=== PATIENT | male | born 1935 ===

== ENCOUNTER 2017-02-19 13:35 | Inpatient (IN) | payer MEDICARE, OTHER ==
[2017-02-19 13:38] VITALS: BMI 20.9
--- NOTE | 2017-02-19 14:19 | ED PDOC ---
HPI: General Adult Time Seen by Provider: 02/19/17 14:03 Chief Complaint (Nursing): Abdominal Pain Chief Complaint (Provider): weakness History Per: Patient, Other (friend) History/Exam Limitations: other (poor historian) Current Symptoms Are (Timing): Still Present Additional History Per: Family (friend) Additional Complaint(s): 81yo male is brought in by friend for weakness, decreased urination and pain to right groin consistent with known hernia. States last saw his doctor 1 month ago but doesn't remember the name. This is his first visit to [facility] under this MR #. Denies fever, vomit, diarrhea. Friend states that she lives several doors down and often hears him moaning in pain. History limited due to poor historian. Past Medical History Reviewed: Historical Data, Nursing Documentation, Vital Signs, Unable To Obtain (poor historian) Vital Signs: Last Vital Signs Temp 98.8 F 02/24/17 22:50 Pulse 66 02/24/17 22:50 Resp 17 02/24/17 22:50 BP 146/72 02/24/17 22:50 Pulse Ox 96 02/24/17 22:50 - Medical History Other PMH: hernia - Family History Family History: States: Unknown Family Hx - Home Medications Home Medications: Ambulatory Orders Medication Instructions Recorded No Known Home Med 02/19/17 - Allergies Allergies/Adverse Reactions: Allergies Allergy/AdvReac Type Severity Reaction Status Date / Time No Known Allergies Allergy Verified 02/19/17 13:46 Review of Systems Review Of Systems: ROS cannot be obtained secondary to pt's inabilty to answer questions. (poor historian) Physical Exam - Reviewed Nursing Documentation Reviewed: Yes Vital Signs Reviewed: Yes - Physical Exam Appears: Positive for: Non-toxic (elderly appearing, with cachexia, temporal wasting), No Acute Distress Head Exam: Positive for: ATRAUMATIC, NORMAL INSPECTION, NORMOCEPHALIC Skin: Positive for: Warm, Dry Eye Exam: Positive for: EOMI, PERRL ENT: Positive for: Other (mildly dehydrated with poor dentition, dry mucous membrane) Cardiovascular/Chest: Positive for: Regular Rate, Rhythm Respiratory: Positive for: Normal Breath Sounds. Negative for: Rales, Rhonchi, Wheezing Gastrointestinal/Abdominal: Positive for: Soft, Other (several brenden surigcal scars to abdomen). Negative for: Tenderness Male Genital Exam: Positive for: other (inguinal hernia with mildly tender right groin) Extremity: Positive for: Other (No distal edema. +pulses) Neurologic/Psych: Positive for: Other (although confused, otherwise neurologically intact.) - Laboratory Results Result Diagrams: 02/20/17 07:25 02/20/17 07:25 - ECG O2 Sat by Pulse Oximetry: 98 (RA) Pulse Ox Interpretation: Normal Medical Decision Making Medical Decision Makin Workup for abdominal pain, dehydration, hernia. Initiate IV fluids, check CT abd /pel. labs reviewed. CT report reviewed, revealing R inguinal hernia and hydroureter. Admit to Dr James. Dr Infante aware, admitting team to consult urology. Antibiotics initiated after cultures obtained. Disposition - Clinical Impression Clinical Impression: Abdominal pain, UTI (urinary tract infection), Inguinal hernia - Patient ED Disposition Is Patient to be Admitted: Yes Counseled Patient/Family Regarding: Studies Performed, Diagnosis, Need For Followup - Disposition Disposition Time: 18:14 Condition: STABLE - Pt Status Changed To: Hospital Disposition Of: Inpatient - Admit Certification Admit to Inpatient:: After my assessment, the patient will require hospitalization for at least two midnights. This is because of the severity of symptoms shown, intensity of services needed, and/or the medical risk in this patient being treated as an outpatient. - POA Present On Arrival: Poor Glycemic Control Additional Comments - Additional Comments Additional Comments: Scribe Attestation: Documented by Tee Smart acting as a scribe for Carlin Vines DO. Provider Scribe Attestation: All medical record entries made by the Scribe were at my direction and personally dictated by me. I have reviewed the chart and agree that the record accurately reflects my personal performance of the history, physical exam, medical decision making, and the department course for this patient. I have also personally directed, reviewed, and agree with the discharge instructions and disposition.
[2017-02-19] MEDS ORDERED: Sodium Chloride 0.9% 1,000 ML IV STA (14:20)
[2017-02-19 14:34] LABS: BASO % 0.4 % (0.0-2.0); EOS # 0.1 K/uL (0.0-0.7); EOS % 0.7 % (0.0-4.0); HEMOGLOBIN 14.2 g/dL (12.0-18.0); LYMPH # 1.1 K/uL (1.0-4.3); LYMPH % 10.2 % (20.0-40.0); MEAN CELL VOLUME 91.5 fl (80.0-94.0); MEAN CORPUSCULAR HEMOGLOBIN 30.4 pg (27.0-31.0); MEAN CORPUSCULAR HGB CONC 33.3 g/dL (33.0-37.0); MEAN PLATELET VOLUME 8.8 fl (7.2-11.7); MONO # 0.7 K/uL (0.0-0.8); MONO % 6.8 % (0.0-10.0); NEUT # 8.6 K/uL (1.8-7.0); NEUT % 81.9 % (50.0-75.0); NRBC % 0.2 % (0.0-0.0); RBC 4.65 Mil/uL (4.40-5.90); RED CELL DISTRIBUTION WIDTH 14.3 % (11.5-14.5); WHITE BLOOD COUNT 10.5 K/uL (4.8-10.8)
[2017-02-19 14:44] LABS: ALBUMIN 3.1 g/dL (3.5-5.0); CALCIUM 8.5 mg/dL (8.4-10.2)
[2017-02-19 14:54] LABS: TROPONIN I 0.016 ng/mL (0.00-0.120)
[2017-02-19 14:57] LABS: ALB/GLOB RATIO 0.8 (1.0-2.1); INR 1.25 (0.92-1.08); PARTIAL THROMBOPLASTIN TIME 28.6 SECONDS (23.3-32.5)
[2017-02-19 16:46] LABS: SQUAMOUS EPITHIAL 3 /hpf (0-5); URINE BACTERIA OCC (<OCC); URINE BILIRUBIN NEGATIVE (NEGATIVE); URINE BLOOD SMALL (NEGATIVE); URINE CLARITY CLOUDY (Clear); URINE COLOR AMBER (YELLOW); URINE GLUCOSE (UA) NEG (Normal); URINE LEUKOCYTE ESTERASE LARGE Leu/uL (Negative); URINE NITRATE NEGATIVE (NEGATIVE); URINE PROTEIN 100 mg/dL (NEGATIVE); URINE UROBILINOGEN 0.2-1.0 mg/dL (0.2-1.0); WBC CLUMPS FEW /hpf
[2017-02-19 16:53] LABS: MAGNESIUM 2.6 MG/DL (1.6-2.3)
--- NOTE | 2017-02-19 17:51 | CT ---
PROCEDURE: CT Abdomen and Pelvis without intravenous contrast HISTORY: R inguinal pain, hernia COMPARISON: None. TECHNIQUE: Unenhanced study. Neither oral nor intravenous contrast administered. Sensitivity and specificity for acute inflammatory processes limited by the absence of oral and intravenous contrast. Radiation dose: Total exam DLP = 875.17 roland mGy-cm. This CT exam was performed using one or more of the following dose reduction techniques: Automated exposure control, adjustment of the mA and/or kV according to patient size, and/or use of iterative reconstruction technique. FINDINGS: LOWER THORAX: Unremarkable. LIVER: Unremarkable. No gross lesion or ductal dilatation. GALLBLADDER AND BILE DUCTS: Unremarkable. PANCREAS: Unremarkable. No gross lesion or ductal dilatation. SPLEEN: Unremarkable. ADRENALS: Unremarkable. No mass. KIDNEYS AND URETERS: Right kidney: Unremarkable. Left kidney: Dilatation of the left collecting system, the left ureter is dilated in its entirety. Left ureterocele identified. No evidence of obstructing calculi or renal masses. VASCULATURE: Unremarkable. No aortic aneurysm. BOWEL: Right inguinal hernia containing nondilated loops of small bowel. There is no evidence of more proximal obstruction or evidence of incarceration. Diverticulosis without an acute inflammatory component or other associated pathologic process. APPENDIX: No abnormalities to suggest acute appendicitis. No right lower quadrant inflammatory processes identified. PERITONEUM: Unremarkable. No free fluid. No free air. LYMPH NODES: Unremarkable. No enlarged lymph nodes. BLADDER: Diffuse bladder wall thickening. Multiple small bladder diverticula identified. No focal bladder wall abnormalities. REPRODUCTIVE: Prostatic enlargement, prostate measures 4.6 x 5.7 cm. BONES: No acute fracture. OTHER FINDINGS: None. IMPRESSION: 1. Small right inguinal hernia containing loops of small bowel without evidence of incarceration or proximal obstruction. 2. Bladder wall thickening, bladder diverticular a identified. In the proper clinical setting this bladder wall thickening can't be ADRIAN cystitis. Ultimately bladder outflow obstruction can produce bladder wall thickening. 3. Unilateral, left hydronephrosis, hydroureter without obstructing stone or other pathologic process.
[2017-02-19] MEDS ORDERED: cefTRIAXone (Rocephin) 1 gm Inj ONE (19:20)
[2017-02-19] MEDS ORDERED: Potassium Chloride 20 mEq ER Tab PO ONE ×2 (19:33→20:02)
--- NOTE | 2017-02-19 21:33 | CP.PCM.CON ---
History of Present Illness - History of Present Illness History of Present Illness: 81 y.o. male was brought to the hospital with complains of not being able to void and lower abdominal pain. Denies any nausea or vomiting, no fever but reported some chills. Passing flatus and reports diarrhea. Patient is a poor historian and most of the history was obtained from patient's daughter present at the bedside and ER physician. Patient underwent CT scan of the abdomen and pelvis and there was a finding of right inguinal hernia without signs of obstruction or incarceration. No other complains at present time. Review of Systems - Constitutional Constitutional: As Per HPI - EENT Eyes: Other (unremarkable) Ears: Other (unremarkable) Nose/Mouth/Throat: Other (unremarkable) - Cardiovascular Cardiovascular: Other (unremarkable) - Respiratory Respiratory: Other (unremarkable) - Gastrointestinal Gastrointestinal: As Per HPI - Genitourinary Genitourinary: As Per HPI - Musculoskeletal Musculoskeletal: Other (unremarkable) - Integumentary Integumentary: Other (unremarkable) - Neurological Neurological: Other (unremarkable) - Psychiatric Psychiatric: Other (unremarkable) - Endocrine Endocrine: Other (unremarkable) - Hematologic/Lymphatic Hematologic: Other (unremarkable) Past Patient History - Past Social History Smoking Status: Never Smoked - GENITOURINARY/GYNECOLOGICAL Hx Prostate Problems: Yes - PSYCHIATRIC Hx Substance Use: No - SURGICAL HISTORY Hx Surgeries: Yes Other/Comment: Surgery for gastric ulcer - ANESTHESIA Hx Anesthesia: Yes Meds Allergies/Adverse Reactions: Allergies Allergy/AdvReac Type Severity Reaction Status Date / Time No Known Allergies Allergy Verified 02/19/17 13:46 Physical Exam - Constitutional Appears: Well, Non-toxic, No Acute Distress - Head Exam Head Exam: ATRAUMATIC, NORMAL INSPECTION, NORMOCEPHALIC - ENT Exam ENT Exam: Mucous Membranes Dry - Neck Exam Neck exam: Positive for: Full Rom, Normal Inspection - Respiratory Exam Respiratory Exam: Clear to Auscultation Bilateral, NORMAL BREATHING PATTERN - Cardiovascular Exam Cardiovascular Exam: REGULAR RHYTHM, +S1, +S2 - GI/Abdominal Exam GI & Abdominal Exam: Normal Bowel Sounds, Soft Additional comments: NT, ND, no rebound, no guarding, reducible right inguinal hernia - Rectal Exam Rectal Exam: Deferred - Exam Exam: Testicular Tenderness - Extremities Exam Extremities exam: Positive for: full ROM, normal inspection - Back Exam Back exam: NORMAL INSPECTION - Neurological Exam Neurological exam: Alert - Psychiatric Exam Psychiatric exam: Normal Affect, Normal Mood - Skin Skin Exam: Dry, Intact, Normal Color, Warm Results - Vital Signs Recent Vital Signs: Last Vital Signs Temp 98.3 F 02/19/17 20:25 Pulse 88 02/19/17 20:25 Resp 17 02/19/17 20:25 BP 119/76 02/19/17 20:25 Pulse Ox 93 L 02/19/17 20:25 - Labs Result Diagrams: 02/19/17 14:25 02/19/17 14:25 - Imaging and Cardiology CT scan - abdomen Status: Image reviewed by me, Report reviewed by me Assessment & Plan - Assessment and Plan (Free Text) Assessment: 81 y.o. male with UTI, enlarged prostate, left hydronephrosis and reducible right inguinal hernia Plan: - No general surgery intervention at present time - Antibiotics as per medical team - Recommend Urology consultation - Continue care as per medical team - General surgery will sign off - Please re-consult as needed
[2017-02-19] MEDS: Potassium Chl 20 mEq in D5-NS 1,000 ML IV SCH (23:46)
[2017-02-20 07:52] LABS: HEMOGLOBIN 13.1 g/dL (12.0-18.0); MEAN CORPUSCULAR HEMOGLOBIN 30.3 pg (27.0-31.0); MEAN CORPUSCULAR HGB CONC 32.5 g/dL (33.0-37.0); RBC 4.33 Mil/uL (4.40-5.90); RED CELL DISTRIBUTION WIDTH 14.3 % (11.5-14.5); WHITE BLOOD COUNT 10.5 K/uL (4.8-10.8)
[2017-02-20 08:16] LABS: ALB/GLOB RATIO 0.7 (1.0-2.1); ALBUMIN 2.8 g/dL (3.5-5.0); CALCIUM 8.3 mg/dL (8.4-10.2)
--- NOTE | 2017-02-20 10:17 | CP.PCM.PN ---
Subjective - Date & Time of Evaluation Date of Evaluation: 02/20/17 Time of Evaluation: 10:12 - Subjective Subjective: 81 year old male admmited to [facility] [place],CT shows enlarged prosrtate and left hydro, unable to pass oliva. Will cysto tomorrow pleas keep npo,and clear for anestesia. Matt Objective - Vital Signs/Intake and Output Vital Signs (last 24 hours): Temp Pulse Resp BP Pulse Ox 97.6 F 86 17 116/77 94 L 02/20/17 07:32 02/20/17 07:32 02/20/17 07:32 02/20/17 07:32 02/20/17 07:32 - Medications Medications: Current Medications Acetaminophen (Tylenol 325mg Tab) 650 mg PO Q6 PRN PRN Reason: Pain, moderate (4-7) Potassium Chloride/Dextrose/Sod Cl (Potassium Chl 20 Meq In D5-Ns) 1,000 mls @ 80 mls/hr IV .[id number] [facility] Stop: 02/20/17 23:00 Last Admin: 02/19/17 23:46 Dose: 80 mls/hr Ceftriaxone Sodium 1 gm/ (Sodium Chloride) 100 mls @ 100 mls/hr IVPB DAILY [facility] Last Admin: 02/20/17 08:49 Dose: 100 mls/hr Tamsulosin HCl (Flomax) 0.4 mg PO DAILY [facility] - Labs Labs: 02/20/17 07:25 02/20/17 07:25 PT 13.0 SECONDS (9.6-11.2) H 02/19/17 14:25 INR 1.25 (0.92-1.08) H 02/19/17 14:25 APTT 28.6 SECONDS (23.3-32.5) 02/19/17 14:25
[2017-02-20] MEDS: Potassium Chl 20 mEq in D5-NS 1,000 ML IV SCH (11:45)
[2017-02-20] MEDS: Pantoprazole 40 mg EC Tab PO SCH (13:15)
--- NOTE | 2017-02-20 14:05 | RAD ---
HISTORY: Admission, pre-op COMPARISON: No prior study available for comparison. FINDINGS: LUNGS: Poor inspiration with low lung volumes, mild crowded bronchovascular markings and mild bibasilar atelectasis. PLEURA: No significant pleural effusion identified, no pneumothorax apparent. CARDIOVASCULAR: Heart appears borderline/ mildly enlarged. Aorta is ectatic and uncoiled. OSSEOUS STRUCTURES: Mild multilevel degenerative spondylosis of the thoracic spine. Degenerative changes both shoulder girdles with high-riding humeral heads consistent with chronic rotator cuff injuries. VISUALIZED UPPER ABDOMEN: Normal. OTHER FINDINGS: None. IMPRESSION: Poor inspiration with low lung volumes, mild crowded bronchovascular markings and mild bibasilar atelectasis.
--- NOTE | 2017-02-20 19:54 | CP.PCM.CON ---
History of Present Illness - History of Present Illness History of Present Illness: THE PATIENT IS AN 81 YEAR OLD MALE WHO HAS BPH AND HAS A DIFFICULT TIME URINATING FOR THE PAST FEW WEEKS AND HE ALSO HAS A RIGHT INGUINAL HERNIA THAT IS CAUSING HIM MUCH PAIN. HE WAS BROUGHT TO THE ER ADMITTED BY A NEIGHBOR AND FRIEND AND WAS FOUND TO HAVE AN ENLARGED PROSTATE AND LEFT HYDRONEPHROSIS. A GARNER CATHETER COULD NOT BE PASSED AND THE UROLOGIST DECIDED TO BRING HIM TO THE OR TOMORROW FOR A CYSTOSCOPY. CARDIOLOGY WAS ASKED TO SEE HIM ON CONSULTATION FOR SURGICAL CLEARANCE. THE PATIENT DENIES ANY SIGNIFICANT MEDICAL PROBLEMS SUCH CHEST PAIN, CAD, HYPERTENSION, COPD OR DM. HE STATES THAT HE HAS SURGERY IN THE PAST FOR A GASTRIC ULCER. HE DOES NOT TAKE ANY MEDICINES AT HOME. HE DENIES PAST USE OF ALCOHOL OR TOBACCO TO ME. Past Patient History - Past Medical History & Family History Past Medical History?: Yes - Past Social History Smoking Status: Never Smoked - CARDIAC Hx Cardiac Disorders: No - PULMONARY Hx Respiratory Disorders: No - NEUROLOGICAL Hx Neurological Disorder: No - HEENT Hx HEENT Problems: No - RENAL Hx Chronic Kidney Disease: No - ENDOCRINE/METABOLIC Hx Endocrine Disorders: No - HEMATOLOGICAL/ONCOLOGICAL Hx Blood Disorders: No - INTEGUMENTARY Hx Dermatological Problems: No - MUSCULOSKELETAL/RHEUMATOLOGICAL Hx Musculoskeletal Disorders: Yes Hx Falls: Yes - GASTROINTESTINAL Hx Gastrointestinal Disorders: Yes Other/Comment: abdominal surgery - GENITOURINARY/GYNECOLOGICAL Hx Genitourinary Disorders: Yes Hx Prostate Problems: Yes - PSYCHIATRIC Hx Psychophysiologic Disorder: No Hx Substance Use: No - SURGICAL HISTORY Hx Surgeries: Yes Other/Comment: Surgery for gastric ulcer - ANESTHESIA Hx Anesthesia: Yes Hx Anesthesia Reactions: No Meds Allergies/Adverse Reactions: Allergies Allergy/AdvReac Type Severity Reaction Status Date / Time No Known Allergies Allergy Verified 02/19/17 13:46 - Medications Medications: Current Medications Acetaminophen (Tylenol 325mg Tab) 650 mg PO Q6 PRN PRN Reason: Pain, moderate (4-7) Potassium Chloride/Dextrose/Sod Cl (Potassium Chl 20 Meq In D5-Ns) 1,000 mls @ 80 mls/hr IV .[id number] [facility] Stop: 02/22/17 23:00 Last Admin: 02/20/17 11:45 Dose: 80 mls/hr Ceftriaxone Sodium 1 gm/ (Sodium Chloride) 100 mls @ 100 mls/hr IVPB DAILY [facility] Last Admin: 02/20/17 08:49 Dose: 100 mls/hr Pantoprazole Sodium (Protonix Ec Tab) 40 mg PO DAILY [facility] Last Admin: 02/20/17 13:15 Dose: 40 mg Tamsulosin HCl (Flomax) 0.4 mg PO DAILY [facility] Last Admin: 02/20/17 11:43 Dose: 0.4 mg Physical Exam - Respiratory Exam Respiratory Exam: Clear to Auscultation Bilateral - Cardiovascular Exam Cardiovascular Exam: REGULAR RHYTHM, +S1, +S2 - Extremities Exam Extremities exam: Positive for: normal inspection - Additional Findings Additional findings: EKG NSR, RBBB ECHO GOOD LV FUNCTION, MILD AR BUT NO ER, UROLOGY AND SURGICAL NOTES REVIEWED INITIAL K+ WAS 2.9 BUT MAEGAN TO 3.7 WITH IV FLUIDS WITH KCL Results - Vital Signs Recent Vital Signs: Last Vital Signs Temp 99.1 F 02/20/17 16:00 Pulse 98 H 02/20/17 16:00 Resp 20 02/20/17 16:00 BP 136/76 02/20/17 16:00 Pulse Ox 100 02/20/17 16:00 - Labs Result Diagrams: 02/20/17 07:25 02/20/17 07:25 Labs: Laboratory Results - last 24 hr 02/20/17 02/20/17 02/20/17 07:25 07:25 10:13 WBC 10.5 RBC 4.33 L Hgb 13.1 Hct 40.2 MCV 93.0 MCH 30.3 MCHC 32.5 L RDW 14.3 Plt Count 397 Sodium 138 Potassium 3.7 Chloride 107 Carbon Dioxide 21 L Anion Gap 14 BUN 36 H Creatinine 1.4 Est GFR ( Amer) 59 Est GFR (Non-Af Amer) 48 Random Glucose 100 Calcium 8.3 L Total Bilirubin 0.9 AST 19 ALT 18 L Alkaline Phosphatase 82 Total Protein 6.8 Albumin 2.8 L Globulin 4.0 H Albumin/Globulin Ratio 0.7 L Prostate Specific Ag 0.934 Assessment & Plan - Assessment and Plan (Free Text) Assessment: BPH WITH URINARY RETENTION and UTI RIGHT INGUINAL HERNIA STABLE CARDIAC STATUS Plan: THE PATIENT IS ON IV FLUIDS WITH KCL, ANTIBIOTICS, FLOMAX AND PROTONIX HE IS CLEARED FOR HIS CYSTOSCOPY AND ALSO FOR A PROSTATECTOMY IF NEEDED
[2017-02-21] MEDS: Potassium Chl 20 mEq in D5-NS 1,000 ML IV SCH ×2 (02:59→17:05)
--- NOTE | 2017-02-21 07:39 | HP ---
HISTORY OF PRESENT ILLNESS: This patient is seen today, 02/20/2017. He is an 81-year-old male with no significant past medical history except for benign prostatic hypertrophy and right inguinal hernia, and status post peptic ulcer surgery many years ago. The patient is currently not on any medications. The patient was brought to Emergency Room by a friend due to persistent lower abdominal pain associated with inability to urinate. The patient was evaluated in the Emergency Room where he was found to have urinary tract infection and right inguinal hernia. The patient had a surgical consultation done by Dr. Infante who deferred patient to urologist. The patient was found to have left hydronephrosis. The patient was scheduled by urology to have cystoscopy. REVIEW OF SYSTEMS: Other review of systems is negative. ALLERGIES: No known allergy. MEDICATIONS: None. PAST MEDICAL HISTORY: As above. SOCIAL HISTORY: Positive history of smoking. No ETOH or substance abuse. FAMILY HISTORY: Not contributory. PHYSICAL EXAMINATION: VITAL SIGNS: The patient has blood pressure of 116/77, temperature 97.6, respiratory rate is 17, pulse 86. HEENT: Pupils equal, reactive to light. Normal-appearing mucosa of the conjunctivae, oropharyngeal and nasal membrane mucosa. NECK: Supple, no JVD, no carotid bruit, no lymph node, no thyromegaly. CHEST AND LUNGS: Bilateral symmetrical expansion, good air exchange, no rales, no rhonchi. CARDIOVASCULAR: PMI not localized. S1, S2. No additional sounds. ABDOMEN: Normoactive bowel sounds, no tenderness, no organomegaly, no masses. EXTREMITIES: No cyanosis, no clubbing, no edema. CENTRAL NERVOUS SYSTEM: Alert, awake, oriented x 3. No neurological deficits could be appreciated. Right inguinal hernia which is not reducible. ASSESSMENT: Benign prostatic hypertrophy, right inguinal hernia, symptomatic urinary tract infection. PLAN: IV fluids with potassium. Follow up urology recommendations. Cardiology consultation for cardiac clearance prior to surgery. Rocephin IV antibiotics. Karen S Jacob RIVAS cc: [phone] TT: 02/21/2017 07:38:46 yonas REYES
[2017-02-21] MEDS: Pantoprazole 40 mg EC Tab PO SCH ×2 (08:43→17:04)
--- NOTE | 2017-02-21 08:57 | CP.PCM.PN ---
Subjective - Date & Time of Evaluation Date of Evaluation: 02/21/17 Time of Evaluation: 08:20 - Subjective Subjective: NO CHEST PAIN OR SOB Objective - Vital Signs/Intake and Output Vital Signs (last 24 hours): Temp Pulse Resp BP Pulse Ox 99 F 105 H 18 126/79 94 L 02/21/17 08:30 02/21/17 08:30 02/21/17 08:30 02/21/17 08:30 02/21/17 08:30 - Medications Medications: Current Medications Acetaminophen (Tylenol 325mg Tab) 650 mg PO Q6 PRN PRN Reason: Pain, moderate (4-7) Potassium Chloride/Dextrose/Sod Cl (Potassium Chl 20 Meq In D5-Ns) 1,000 mls @ 80 mls/hr IV .[id number] [facility] Stop: 02/22/17 23:00 Last Admin: 02/21/17 02:59 Dose: 80 mls/hr Ceftriaxone Sodium 1 gm/ (Sodium Chloride) 100 mls @ 100 mls/hr IVPB DAILY [facility] Last Admin: 02/21/17 08:43 Dose: 100 mls/hr Pantoprazole Sodium (Protonix Ec Tab) 40 mg PO DAILY [facility] Last Admin: 02/21/17 08:43 Dose: Not Given Tamsulosin HCl (Flomax) 0.4 mg PO DAILY [facility] Last Admin: 02/21/17 08:43 Dose: Not Given - Labs Labs: 02/20/17 07:25 02/20/17 07:25 PT 13.0 SECONDS (9.6-11.2) H 02/19/17 14:25 INR 1.25 (0.92-1.08) H 02/19/17 14:25 APTT 28.6 SECONDS (23.3-32.5) 02/19/17 14:25 - Respiratory Exam Respiratory Exam: Clear to Ausculation Bilateral - Cardiovascular Exam Cardiovascular Exam: REGULAR RHYTHM, +S1, +S2 - Extremities Exam Extremities Exam: Normal Inspection Assessment and Plan - Assessment and Plan (Free Text) Assessment: BPH WITH URINARY RETENTION AND UTI RIGHT INGUINAL HERNIA Plan: CONTINUE ANTIBIOTICS, FLOMAX AND PROTONIX PATIENT CLEARED FOR CYSTOSCOPY THIS AM
[2017-02-21] MEDS ORDERED: Iohexol 300 100 ML IJ ONE (10:01)
[2017-02-21] MEDS ORDERED: cefTRIAXone (Rocephin) 1 gm Inj ONE (10:01)
[2017-02-21] MEDS ORDERED: Midazolam 2 MG/2 ML VIAL ONE (10:41)
[2017-02-21] MEDS ORDERED: Propofol 10 mg/ml Inj (20 ML) ONE (10:41)
[2017-02-21] MEDS ORDERED: Iohexol 240 200 ML IJ ONE (10:42)
[2017-02-21] MEDS ORDERED: Gentamicin 80mg/50ml NS 160 MG/100 ML BAG IVPB ONE (10:44)
[2017-02-21] MEDS ORDERED: Lactated Ringer's 1,000 ML IV ONE (10:55)
[2017-02-21] MEDS ORDERED: Gentamicin 80 mg/2mL Inj. IVPB ONE (11:00)
[2017-02-21] MEDS ORDERED: Lactated Ringer's 1,000 ML IV SCH (12:20)
[2017-02-21] MEDS ORDERED: HYDROmorphone 0.5 mg/0.5 ml ISec IVP PRN (12:20)
--- NOTE | 2017-02-21 12:20 | PCM.SURG1 ---
Surgeon's Initial Post Op Note - Surgeon's Notes Surgeon: Matt Configuration Management Advisor: CORTEZ Type of Anesthesia: General Mask Anesthesia Administered By: staff Pre-Operative Diagnosis: Urethrtal stricture Operative Findings: urethral stricture Post-Operative Diagnosis: urethral stricture Operation Performed: cysto attempted [place]on dilitation Specimen/Specimens Removed: na Estimated Blood Loss: EBL {In ML}: 0 Blood Products Given: N/A Drains Used: No Drains Post-Op Condition: Good Date of Surgery/Procedure: 02/21/17 Time of Surgery/Procedure: 12:21 (disscussed case with Dr garcia)
--- NOTE | 2017-02-21 12:30 | CP.PCM.PN ---
Subjective - Date & Time of Evaluation Date of Evaluation: 02/21/17 Time of Evaluation: 12:23 - Subjective Subjective: As discussed with Dr James,unable to open stricture,if pt voids pt may be discharged with antibiotic coverage (URINE C&S +)to be re cystoscoped at a facility with more equipment for treatment of stricture. IF pt unable to void pt should have perc cystotomy by IR . unless the bladder becomes more distended an Perc cystotomy can be attempted without us control. Matt Objective - Vital Signs/Intake and Output Vital Signs (last 24 hours): Temp Pulse Resp BP Pulse Ox 99 F 105 H 18 126/79 94 L 02/21/17 08:30 02/21/17 08:30 02/21/17 08:30 02/21/17 08:30 02/21/17 08:30 Intake and Output: 02/21/17 02/21/17 06:59 18:59 Intake Total 250 Balance 250 - Medications Medications: Current Medications Acetaminophen (Tylenol 325mg Tab) 650 mg PO Q6 PRN PRN Reason: Pain, moderate (4-7) Hydromorphone HCl (Dilaudid) 0.5 mg IVP Q15M PRN PRN Reason: Pain, moderate (4-7) Stop: 02/22/17 12:21 Potassium Chloride/Dextrose/Sod Cl (Potassium Chl 20 Meq In D5-Ns) 1,000 mls @ 80 mls/hr IV .[id number] [facility] Stop: 02/22/17 23:00 Last Admin: 02/21/17 02:59 Dose: 80 mls/hr Ceftriaxone Sodium 1 gm/ (Sodium Chloride) 100 mls @ 100 mls/hr IVPB DAILY [facility] Last Admin: 02/21/17 08:43 Dose: 100 mls/hr Lactated Ringer's (Lactated Ringer's) 1,000 mls @ 50 mls/hr IV .Q20H [facility] Pantoprazole Sodium (Protonix Ec Tab) 40 mg PO DAILY [facility] Last Admin: 02/21/17 08:43 Dose: Not Given Tamsulosin HCl (Flomax) 0.4 mg PO DAILY [facility] Last Admin: 02/21/17 08:43 Dose: Not Given - Labs Labs: 02/20/17 07:25 02/20/17 07:25 PT 13.0 SECONDS (9.6-11.2) H 02/19/17 14:25 INR 1.25 (0.92-1.08) H 02/19/17 14:25 APTT 28.6 SECONDS (23.3-32.5) 02/19/17 14:25
--- NOTE | 2017-02-21 18:15 | CARD ---
APPROVED REPORT EXAM: Two-dimensional and M-mode echocardiogram with Doppler and color Doppler. Other Information Quality : AverageRhythm : NSR Technically limited study due to Poor Echo Window INDICATION Pre-Op 2D DIMENSIONS IVSd0.59 (0.7-1.1cm)LVDd4.84 (3.9-5.9cm) LVOT Diameter2.62 (1.8-2.4cm)PWd0.80 (0.7-1.1cm) IVSs1.12 (0.8-1.2cm)LVDs3.76 (2.5-4.0cm) FS (%) 22.3 %PWs1.11 (0.8-1.2cm) M-Mode DIMENSIONS Left Atrium (MM)3.47 (2.5-4.0cm)Aortic Root3.26 (2.2-3.7cm) Aortic Cusp Exc.2.21 (1.5-2.0cm) Aortic Valve AI P 1/2 [id number] Mitral Valve E/A ratio0.0 TDI E/Lateral E'0.0E/Medial E'0.0 LEFT VENTRICLE The left ventricle is normal size. There is normal left ventricular wall thickness. The left ventricular function is normal. The left ventricular ejection fraction is 60% There is normal LV segmental wall motion. Transmitral Doppler flow pattern is Grade I-abnormal relaxation pattern. No left ventricle thrombus noted on this study. There is no ventricular septal defect visualized. There is no left ventricular aneurysm. There is no mass noted in the left ventricle. RIGHT VENTRICLE The right ventricle is normal size. There is normal right ventricular wall thickness. The right ventricular systolic function is normal. ATRIA The left atrium size is normal. The right atrium size is normal. The interatrial septum is intact with no evidence for an atrial septal defect. AORTIC VALVE The aortic valve is mildly to moderately sclerotic. There is mild aortic regurgitation. There is no aortic valvular stenosis. There is no aortic valvular vegetation. MITRAL VALVE The mitral valve is normal in structure and function. There is no evidence of mitral valve prolapse. There is no mitral valve stenosis. There is no mitral valve regurgitation noted. TRICUSPID VALVE The tricuspid valve is normal in structure and function. There is no tricuspid valve regurgitation noted. There is no tricuspid valve prolapse or vegetation. There is no tricuspid valve stenosis. PULMONIC VALVE The pulmonary valve is normal in structure and function. There is no pulmonic valvular regurgitation. There is no pulmonic valvular stenosis. GREAT VESSELS The aortic root is normal in size. The ascending aorta is normal in size. The IVC is normal in size and collapses >50% with inspiration. PERICARDIAL EFFUSION The pericardium appears normal. There is no pleural effusion. <Conclusion> Normal LV systolic function Aortic Valve Sclerosis Mild Aortic Insufficiency
--- NOTE | 2017-02-21 18:58 | CARD ---
APPROVED REPORT EKG Measurement Heart [id number] ND 186P5 [id number] <Conclusion> Normal sinus rhythm Right bundle branch block Abnormal ECG
[2017-02-22] MEDS: Potassium Chl 20 mEq in D5-NS 1,000 ML IV SCH ×2 (01:00→13:42)
[2017-02-22] MEDS: Pantoprazole 40 mg EC Tab PO SCH (09:37)
--- NOTE | 2017-02-22 13:51 | CP.PCM.PN ---
Subjective - Date & Time of Evaluation Date of Evaluation: 02/22/17 Time of Evaluation: 13:47 - Subjective Subjective: PT is voiding with some pvr. Unable to place cath per penis with equipment here.pt is afibrile but urine C&S shows PRo teus Mirablus, Suggest 7to 10 days of sensitive antibiotic therapy then refer to my office for further intervention Matt Objective - Vital Signs/Intake and Output Vital Signs (last 24 hours): Temp Pulse Resp BP Pulse Ox 98.2 F 88 17 113/69 93 L 02/22/17 07:43 02/22/17 07:43 02/22/17 07:43 02/22/17 07:43 02/22/17 07:43 - Medications Medications: Current Medications Acetaminophen (Tylenol 325mg Tab) 650 mg PO Q6 PRN PRN Reason: Pain, moderate (4-7) Acetaminophen (Tylenol 325mg Tab) 650 mg PO Q6 PRN PRN Reason: Fever >100.4 F Last Admin: 02/21/17 17:03 Dose: 650 mg Potassium Chloride/Dextrose/Sod Cl (Potassium Chl 20 Meq In D5-Ns) 1,000 mls @ 80 mls/hr IV .[id number] [facility] Stop: 02/22/17 23:00 Last Admin: 02/22/17 13:42 Dose: Not Given Ceftriaxone Sodium 1 gm/ (Sodium Chloride) 100 mls @ 100 mls/hr IVPB DAILY [facility] Last Admin: 02/22/17 09:36 Dose: 100 mls/hr Pantoprazole Sodium (Protonix Ec Tab) 40 mg PO DAILY [facility] Last Admin: 02/22/17 09:37 Dose: 40 mg Tamsulosin HCl (Flomax) 0.4 mg PO DAILY [facility] Last Admin: 02/22/17 09:37 Dose: 0.4 mg - Labs Labs: 02/20/17 07:25 02/20/17 07:25 PT 13.0 SECONDS (9.6-11.2) H 02/19/17 14:25 INR 1.25 (0.92-1.08) H 02/19/17 14:25 APTT 28.6 SECONDS (23.3-32.5) 02/19/17 14:25
[2017-02-22] MEDS ORDERED: Meropenem 1 GM in Sodium Chloride 0.9% 100 ML IVPB ONE (22:25)
[2017-02-23] MEDS: Pantoprazole 40 mg EC Tab PO SCH (08:28)
--- NOTE | 2017-02-23 14:36 | CP.PCM.CON ---
History of Present Illness - History of Present Illness History of Present Illness: Infectious Disease Consultation Note- asked to see this patient at the request of for MDR urine cx. HPI- Pt. is a 81 year old amle with no PMH who was brought in to hospital 3 days ago for c/o lower abd pain and decreased urination . He has been afebrile and with normal wbc count , however, he was found to have urinary retention secondary to urethral stricture and hydronephrosis and cystoscopy was unable to be done as per and will bed oen as outpatient. Pt. states he is able to void but with much straining. He denies nay burning with urination. He denies ever having anything like this before. Denies any n/v, he was also found to have + ua and urine cx that grew proteus MDR and hence Infectious disease consultation was requested . Also as per pt's nurse pt. was noted to have a small penile abscess like lesion which has self drained and had a large amount of purulent discharge since yesterday. Pt. himself is unaware when this developed and only was noticed yesterday. Pt. is in good spirits and denies any fever or chills and denies any complaints except difficulty with urination. Review of Systems - Review of Systems Review of Systems: ROS- denies any fever, denies anyc hills, denies any COLINDRES, denies any cough, denies any sob, denies any chest pain, had lower abd. pain but denies any pain now, denies any dysurea but states has to starin alot to urinate, denies any diarrhea Past Patient History - Past Medical History & Family History Past Medical History?: Yes - Past Social History Smoking Status: Never Smoked Alcohol: None Drugs: Denies Home Situation {Lives}: With Family - CARDIAC Hx Cardiac Disorders: No - PULMONARY Hx Respiratory Disorders: No - NEUROLOGICAL Hx Neurological Disorder: No - HEENT Hx HEENT Problems: No - RENAL Hx Chronic Kidney Disease: No - ENDOCRINE/METABOLIC Hx Endocrine Disorders: No - HEMATOLOGICAL/ONCOLOGICAL Hx Blood Disorders: No - INTEGUMENTARY Hx Dermatological Problems: No - MUSCULOSKELETAL/RHEUMATOLOGICAL Hx Musculoskeletal Disorders: Yes Hx Falls: Yes - GASTROINTESTINAL Hx Gastrointestinal Disorders: Yes Other/Comment: abdominal surgery - GENITOURINARY/GYNECOLOGICAL Hx Genitourinary Disorders: Yes Hx Prostate Problems: Yes - PSYCHIATRIC Hx Psychophysiologic Disorder: No Hx Substance Use: No - SURGICAL HISTORY Hx Surgeries: Yes Other/Comment: Surgery for gastric ulcer - ANESTHESIA Hx Anesthesia: Yes Hx Anesthesia Reactions: No Meds Allergies/Adverse Reactions: Allergies Allergy/AdvReac Type Severity Reaction Status Date / Time No Known Allergies Allergy Verified 02/19/17 13:46 - Medications Medications: Current Medications Acetaminophen (Tylenol 325mg Tab) 650 mg PO Q6 PRN PRN Reason: Pain, moderate (4-7) Acetaminophen (Tylenol 325mg Tab) 650 mg PO Q6 PRN PRN Reason: Fever >100.4 F Last Admin: 02/21/17 17:03 Dose: 650 mg Pantoprazole Sodium (Protonix Ec Tab) 40 mg PO DAILY [facility] Last Admin: 02/23/17 08:28 Dose: 40 mg Tamsulosin HCl (Flomax) 0.4 mg PO DAILY [facility] Last Admin: 02/23/17 08:28 Dose: 0.4 mg Physical Exam - Constitutional Appears: Non-toxic, No Acute Distress - Head Exam Head Exam: ATRAUMATIC - Eye Exam Eye Exam: EOMI, PERRL - ENT Exam ENT Exam: Normal Oropharynx - Neck Exam Neck exam: Positive for: Full Rom - Respiratory Exam Respiratory Exam: Clear to Auscultation Bilateral, NORMAL BREATHING PATTERN - Cardiovascular Exam Cardiovascular Exam: RRR, +S1, +S2 - GI/Abdominal Exam GI & Abdominal Exam: Normal Bowel Sounds, Soft Additional comments: ND, Nt No guarding, no rebound - Exam Additional comments: dorsal penile shaft small opening with minimal purulent discharge no malodor no surrounding erythema ( solid propellant processor present in the room) - Extremities Exam Additional comments: no edema in B/L LE - Neurological Exam Neurological exam: Alert, Oriented x3 Results - Vital Signs Recent Vital Signs: Last Vital Signs Temp 97.7 F 02/23/17 07:38 Pulse 67 02/23/17 07:38 Resp 20 02/23/17 07:38 BP 128/76 02/23/17 07:38 Pulse Ox 99 02/23/17 07:38 - Labs Result Diagrams: 02/20/17 07:25 02/20/17 07:25 Labs: Microbiology 02/19/17 17:05 Urine Urine Culture - Final Proteus Mirabilis Accession No. : [id number] Patient Name / ID : AUGUSTINE LIVINGSTON R / [id number] Exam Date : 02/19/2017 17:06:47 ( Approved ) Study Comment : Sex / Age : M / 81Y Creator : Adebayo Ni MD Dictator : Adebayo Ni MD Stove Installer : Refractory Mixer : Adebayo Ni MD Approver2 : Report Date : 02/19/2017 17:50:08 My Comment : PROCEDURE: CT Abdomen and Pelvis without intravenous contrast HISTORY: R inguinal pain, hernia COMPARISON: None. TECHNIQUE: Unenhanced study. Neither oral nor intravenous contrast administered. Sensitivity and specificity for acute inflammatory processes limited by the absence of oral and intravenous contrast. Radiation dose: Total exam DLP = 875.17 roland mGy-cm. This CT exam was performed using one or more of the following dose reduction techniques: Automated exposure control, adjustment of the mA and/or kV according to patient size, and/or use of iterative reconstruction technique. FINDINGS: LOWER THORAX: Unremarkable. LIVER: Unremarkable. No gross lesion or ductal dilatation. GALLBLADDER AND BILE DUCTS: Unremarkable. PANCREAS: Unremarkable. No gross lesion or ductal dilatation. SPLEEN: Unremarkable. ADRENALS: Unremarkable. No mass. KIDNEYS AND URETERS: Right kidney: Unremarkable. Left kidney: Dilatation of the left collecting system, the left ureter is dilated in its entirety. Left ureterocele identified. No evidence of obstructing calculi or renal masses. VASCULATURE: Unremarkable. No aortic aneurysm. BOWEL: Right inguinal hernia containing nondilated loops of small bowel. There is no evidence of more proximal obstruction or evidence of incarceration. Diverticulosis without an acute inflammatory component or other associated pathologic process. APPENDIX: No abnormalities to suggest acute appendicitis. No right lower quadrant inflammatory processes identified. PERITONEUM: Unremarkable. No free fluid. No free air. LYMPH NODES: Unremarkable. No enlarged lymph nodes. BLADDER: Diffuse bladder wall thickening. Multiple small bladder diverticula identified. No focal bladder wall abnormalities. REPRODUCTIVE: Prostatic enlargement, prostate measures 4.6 x 5.7 cm. BONES: No acute fracture. OTHER FINDINGS: None. IMPRESSION: 1. Small right inguinal hernia containing loops of small bowel without evidence of incarceration or proximal obstruction. 2. Bladder wall thickening, bladder diverticular a identified. In the proper clinical setting this bladder wall thickening can't be ADRIAN cystitis. Ultimately bladder outflow obstruction can produce bladder wall thickening. 3. Unilateral, left hydronephrosis, hydroureter without obstructing stone or other pathologic process. Accession No. : [id number] Patient Name / ID : AUGUSTINE LIVINGSTON R / [id number] Exam Date : 02/20/2017 13:10:17 ( Approved ) Study Comment : Sex / Age : M / 81Y Creator : Darnell Tariq MD Dictator : Darnell Tariq MD Stove Installer : Refractory Mixer : Darnell Tariq MD Approver2 : Report Date : 02/20/2017 14:00:15 My Comment : HISTORY: Admission, pre-op COMPARISON: No prior study available for comparison. FINDINGS: LUNGS: Poor inspiration with low lung volumes, mild crowded bronchovascular markings and mild bibasilar atelectasis. PLEURA: No significant pleural effusion identified, no pneumothorax apparent. CARDIOVASCULAR: Heart appears borderline/ mildly enlarged. Aorta is ectatic and uncoiled. OSSEOUS STRUCTURES: Mild multilevel degenerative spondylosis of the thoracic spine. Degenerative changes both shoulder girdles with high-riding humeral heads consistent with chronic rotator cuff injuries. VISUALIZED UPPER ABDOMEN: Normal. OTHER FINDINGS: None. IMPRESSION: Poor inspiration with low lung volumes, mild crowded bronchovascular markings and mild bibasilar atelectasis. Assessment & Plan (1) Urinary tract infection due to Proteus Status: Acute (2) Abscess of shaft of penis Status: Acute (3) Urinary retention Status: Acute - Assessment and Plan (Free Text) Assessment: A/P- 81 year old male with no significant PMH presented with urinary retention found to have left hydronephrosis and MDR proteus UTI and small penile abscess. Pt. does not look septic . No fever and has normal wbc count, however, in light of the urinary retention and need for possible instrumentation such as outpatient cystoscopy would advise to treat the MDR proteus with Meropenem. would also advise to start pt. on iV vacno pending the culture result of the penile discharge. All above d/w patient and his daughter who is at bedside and with as well. Thank you for allowing me to take part in the care of this patient. will f/u while inpatient.
--- NOTE | 2017-02-23 16:52 | PN ---
DATE: 02/23/2017 The patient is seen today, 02/23/2017. He has pus drainage from the base of the penis on the ventral surface, close to the scrotum and patient is able to urinate, but he still has urinary postvoid volum e of around 300-400 mL. PHYSICAL EXAMINATION: VITAL SIGNS: Blood pressure 128/76, temperature 97.7, respiratory rate 20, and pulse 67. HEENT: Pupils equal, reactive to light. Normal-appearing mucosa of the conjunctivae, oropharyngeal and nasal membrane mucosa. NECK: Supple, no JVD, no carotid bruit, no lymph node, no thyromegaly. CHEST AND LUNGS: Bilateral symmetrical expansion, good air exchange, no rales, no rhonchi. CARDIOVASCULAR: PMI not localized. S1, S2. No additional sounds. ABDOMEN: Normoactive bowel sounds, no tenderness, no organomegaly, no masses. EXTREMITIES: No cyanosis, no clubbing, no edema. CENTRAL NERVOUS SYSTEM: Alert, awake, oriented x 3. No neurological deficits could be appreciated. ASSESSMENT: 1. Urinary tract infection. 2. Urinary retention, secondary to urethral stricture with inability to do cystoscopy. 3. Penile infection with some purulent discharge from the ventral aspect of the penis. PLAN: Cultures were sent and antibiotics as per ID and follow urology recommendations. Tiffany James MD cc: 167 TT: 02/23/2017 16:51:47 Confirmation # [id number] Dictation # [id number] en
--- NOTE | 2017-02-23 17:17 | CP.PCM.PN ---
Subjective - Date & Time of Evaluation Date of Evaluation: 02/23/17 Time of Evaluation: 17:13 - Subjective Subjective: Called to se pt because of lesion on penis draining puss ,no evidence of urethral cutaneous fistula. However pt has 500 cc pvr, suggest will discuss with you pt may need suprapubic cystotomy,Matt Objective - Vital Signs/Intake and Output Vital Signs (last 24 hours): Temp Pulse Resp BP Pulse Ox 97.9 F 102 H 20 128/73 96 02/23/17 16:45 02/23/17 16:45 02/23/17 16:45 02/23/17 16:45 02/23/17 16:45 - Medications Medications: Current Medications Acetaminophen (Tylenol 325mg Tab) 650 mg PO Q6 PRN PRN Reason: Pain, moderate (4-7) Acetaminophen (Tylenol 325mg Tab) 650 mg PO Q6 PRN PRN Reason: Fever >100.4 F Last Admin: 02/21/17 17:03 Dose: 650 mg Meropenem 500 mg/ Sodium (Chloride) 100 mls @ 100 mls/hr IVPB Q8 [facility] Vancomycin HCl 500 mg/ Sodium (Chloride) 100 mls @ 100 mls/hr IVPB DAILY [facility] Pantoprazole Sodium (Protonix Ec Tab) 40 mg PO DAILY [facility] Last Admin: 02/23/17 08:28 Dose: 40 mg Tamsulosin HCl (Flomax) 0.4 mg PO DAILY [facility] Last Admin: 02/23/17 08:28 Dose: 0.4 mg - Labs Labs: 02/20/17 07:25 02/20/17 07:25 PT 13.0 SECONDS (9.6-11.2) H 02/19/17 14:25 INR 1.25 (0.92-1.08) H 02/19/17 14:25 APTT 28.6 SECONDS (23.3-32.5) 02/19/17 14:25
[2017-02-23] MEDS: Meropenem 500 MG in Sodium Chloride 0.9% 100 ML IVPB SCH (18:04)
[2017-02-24] MEDS: Meropenem 500 MG in Sodium Chloride 0.9% 100 ML IVPB SCH ×3 (00:30→17:37)
[2017-02-24] MEDS: Pantoprazole 40 mg EC Tab PO SCH (09:29)
--- NOTE | 2017-02-24 13:30 | CP.PCM.PN ---
Subjective - Date & Time of Evaluation Date of Evaluation: 02/24/17 Time of Evaluation: 13:27 - Subjective Subjective: Pt is doing well no further drainage from penis,discussed with Dr James pt armenll be transfered to [facility] for second attempt at urethral dilation and possible suprapubic cystotomy. tomorrow Objective - Vital Signs/Intake and Output Vital Signs (last 24 hours): Temp Pulse Resp BP Pulse Ox 97.6 F 84 18 166/73 H 95 02/24/17 09:00 02/24/17 09:00 02/24/17 09:00 02/24/17 09:00 02/24/17 09:00 - Medications Medications: Current Medications Acetaminophen (Tylenol 325mg Tab) 650 mg PO Q6 PRN PRN Reason: Pain, moderate (4-7) Acetaminophen (Tylenol 325mg Tab) 650 mg PO Q6 PRN PRN Reason: Fever >100.4 F Last Admin: 02/21/17 17:03 Dose: 650 mg Meropenem 500 mg/ Sodium (Chloride) 100 mls @ 100 mls/hr IVPB Q8 [facility] Last Admin: 02/24/17 11:00 Dose: 100 mls/hr Vancomycin HCl 500 mg/ Sodium (Chloride) 100 mls @ 100 mls/hr IVPB DAILY [facility] Last Admin: 02/24/17 11:09 Dose: 100 mls/hr Pantoprazole Sodium (Protonix Ec Tab) 40 mg PO DAILY [facility] Last Admin: 02/24/17 09:29 Dose: Not Given Tamsulosin HCl (Flomax) 0.4 mg PO DAILY [facility] Last Admin: 02/24/17 09:29 Dose: Not Given - Labs Labs: 02/20/17 07:25 02/20/17 07:25 PT 13.0 SECONDS (9.6-11.2) H 02/19/17 14:25 INR 1.25 (0.92-1.08) H 02/19/17 14:25 APTT 28.6 SECONDS (23.3-32.5) 02/19/17 14:25
[2017-02-24 15:34] VITALS: TEMP 98.8
--- NOTE | 2017-02-24 18:19 | PN ---
DATE: 02/24/2017 SUBJECTIVE: The patient is afebrile with decrease of the purulent discharge from the penile fistula. PHYSICAL EXAMINATION: VITAL SIGNS: Blood pressure is 143/80, temperature 98.8, respiratory rate 20, and pulse is 75. HEENT: Pupils equal, reactive to light. Normal appearing mucosa of the conjunctival, oropharyngeal and nasal membrane mucosa. NECK: Supple, no JVD, no carotid bruit, no lymph node, no thyromegaly. CHEST AND LUNGS: Bilateral symmetrical expansion, good air exchange, no rales, no rhonchi. CARDIOVASCULAR: PMI not localized. S1, S2. No additional sounds. ABDOMEN: Normoactive bowel sounds, no tenderness, no organomegaly, no masses. EXTREMITIES: No cyanosis, no clubbing, no edema. CENTRAL NERVOUS SYSTEM: Alert, awake, oriented x 2. No neurological deficits could be appreciated. ASSESSMENT: 1. Urinary retention. 2. Urinary tract infection. 3. Multiple urethral strictures with urinary retention. 4. Penile fistula with purulent discharge. PLAN: Continue current IV antibiotics and discussed with Dr. Gutierrez, who recommended to transfer patient to [facility] for urethral dilatation procedure. We will continue current IV antibiotics. Tiffany James MD cc: 167 TT: 02/24/2017 18:19:22 Confirmation # [id number] Dictation # [id number] MTDD
[2017-02-25 00:34] VITALS: BP 146/72; PULSE 66; RESP 17
--- NOTE | 2017-02-25 08:41 | PN ---
DATE: 02/22/2017 SUBJECTIVE: The patient was seen today 02/22/2017. He is not in any cardiopulmonary distress. The patient has been having difficulty passing urine. He is status post cystoscopy by Dr. Gutierrez . OBJECTIVE: VITAL SIGNS: Blood pressure 145/87, temperature 98, respiratory rate 20, and pulse is 80. HEENT: Pupils equal, reactive to light. Normal-appearing mucosa of the conjunctivae, oropharyngeal and nasal membrane mucosa. NECK: Supple, no JVD, no carotid bruit, no lymph node, no thyromegaly. CHEST AND LUNGS: Bilateral symmetrical expansion, good air exchange, no rales, no rhonchi. CARDIOVASCULAR: PMI not localized. S1, S2. No additional sounds. ABDOMEN: Normoactive bowel sounds, no tenderness, no organomegaly, no masses. EXTREMITIES: No cyanosis, no clubbing and no edema. CENTRAL NERVOUS SYSTEM: Alert, awake, oriented x 2. No neurological deficits could be appreciated. ASSESSMENT: 1. Multiple urethral strictures. 2. Urinary retention. 3. Urinary tract infection, positive klebsiella, which is multidrug resistant. PLAN: Will give 1 dose of meropenem. Will stop the Rocephin and ID consult. Follow urology recommendations. Tiffany James MD cc: 167 TT: 02/22/2017 23:08:16 Confirmation # [id number] Dictation # [id number] [email or web address] REYES
--- NOTE | 2017-02-25 08:41 | PN ---
DATE: 02/21/2017 SUBJECTIVE: This patient was seen on 02/21/2017. He was scheduled for cystoscopy by Dr. Gutierrez. OBJECTIVE: VITAL SIGNS: Blood pressure was 126/79, temperature 99, respiratory rate 18, and pulse of 105. HEENT: Pupils equal, reactive to light. Normal-appearing mucosa of the conjunctivae, oropharyngeal and nasal membrane mucosa. NECK: Supple, no JVD, no carotid bruit, no lymph node, no thyromegaly. CHEST AND LUNGS: Bilateral symmetrical expansion, good air exchange, no rales, no rhonchi. CARDIOVASCULAR: PMI not localized. S1, S2. No additional sounds. ABDOMEN: Normoactive bowel sounds, no tenderness, no organomegaly, no masses. EXTREMITIES: No cyanosis, no clubbing, no edema. CENTRAL NERVOUS SYSTEM: Alert, awake, oriented x 2. No neurological deficits appreciated. ASSESSMENT: Urinary retention. , UTI , MULTIPLE urethral strictures. PLAN: Continue to follow up with urology and ID. Continue current IV antibiotics. Karen Ethan James MD cc: 167 TT: 02/22/2017 23:04:40 Confirmation # [id number] Dictation # [id number] [email or web address] REYES
[2017-02-27 16:26] VITALS: O2SAT 98
--- NOTE | 2017-04-28 11:52 | OP ---
PROCEDURE DATE: 02/21/2017 PREOPERATIVE DIAGNOSIS: Urethral stricture. POSTOPERATIVE DIAGNOSIS: Urethral stricture. PROCEDURE: Cystoscopy and attempted balloon dilatation, urethral stricture. DESCRIPTION OF PROCEDURE: As follows, the patient was draped and prepped in the usual manner. After signing the detailed informed consent, outlying all risks, complications, limitations, and benefits of this procedure, he was brought into the room and draped and prepped in the usual manner. Placed with cystoscope #21 Olympus and endoscope, the meatus was somewhat passed the scope in the anterior urethra, was noted to be a pinpoint stricture, attempt was made to cannulate this with a guidewire, but this was unsuccessful. Fluoroscopy was used to try to guide the guidewire through the urethra; however, because the limited fluoroscopy equipment, the guidewire could not be passed into the bladder. After trying multiple attempts and using multiple different kinds of wires, was elected to abandon the procedure. The patient tolerated this procedure well and was sent to the recovery room in good condition. Jam Gutierrez MD
== END 2017-02-24 23:40 | disposition short-term general hospital (02) | DRG 394 ==
LOC: H.ER 13:35 → H.ERHOLD 19:33 → H.MEDSURG1 21:50
PROVIDERS: ADMIT Internal Medicine; ATTEND Internal Medicine
PROC: 0TJB8ZZ Inspection of Bladder, Via Natural or Artificial Opening Endoscopic (ICD-10-PCS; principal; 2017-02-21 11:00)
DX: K40.90 Unilateral inguinal hernia, without obstruction or gangrene, not specified as recurrent (principal); N39.0 Urinary tract infection, site not specified; N13.30 Unspecified hydronephrosis; J98.11 Atelectasis; N40.1 Benign prostatic hyperplasia with lower urinary tract symptoms; Z87.11 Personal history of peptic ulcer disease; N35.9 Urethral stricture, unspecified; N48.21 Abscess of corpus cavernosum and penis; B96.4 Proteus (mirabilis) (morganii) as the cause of diseases classified elsewhere; R33.8 Other retention of urine

== ENCOUNTER 2017-04-08 07:29 | Emergency (ER) | payer MEDICARE, OTHER ==
[2017-04-08 07:29] VITALS: BMI 22.4
[2017-04-08 07:34] VITALS: BP 118/90; PULSE 85; RESP 16; TEMP 97.6; O2SAT 99
--- NOTE | 2017-04-08 09:02 | ED PDOC ---
HPI: Male Pain Time Seen by Provider: 04/08/17 08:13 Chief Complaint (Nursing): Male Genitourinary Chief Complaint (Provider): Needs Schmidt Bag Replacement History Per: Patient History/Exam Limitations: no limitations Onset/Duration Of Symptoms: Days (x 1 day) Current Symptoms Are (Timing): Still Present Additional Complaint(s): Kaleb Ling is an 81-year-old male who was sent to the emergency department by his primary care physician for replacement of his Schmidt bag secondary to leaking. Patient denies having any other medical concerns. Kaleb reports that his Schmidt was initially placed in November. PMD: Tiffany James MD Past Medical History Reviewed: Historical Data, Nursing Documentation, Vital Signs Vital Signs: Last Vital Signs Temp 97.6 F 04/08/17 07:33 Pulse 85 04/08/17 07:33 Resp 16 04/08/17 07:33 BP 118/90 04/08/17 07:33 Pulse Ox 99 04/08/17 07:33 - Medical History PMH: Denies: Chronic Kidney Disease Other PMH: Gastric ulcer - Surgical History Other surgeries: Abdominal surgery - Family History Family History: States: Unknown Family Hx - Social History Current smoker - smoking cessation education provided: No Alcohol: None Drugs: Denies - Home Medications Home Medications: Ambulatory Orders Medication Instructions Recorded Cephalexin [Keflex] 500 mg PO TID #21 cap 02/28/17 Tamsulosin [Flomax] 0.4 mg PO DAILY #30 cap 02/28/17 - Allergies Allergies/Adverse Reactions: Allergies Allergy/AdvReac Type Severity Reaction Status Date / Time No Known Allergies Allergy Verified 02/19/17 13:46 Review of Systems ROS Statement: Except As Marked, All Systems Reviewed And Found Negative Genitourinary Male: Positive for: Other (Schmidt bag leaking) Physical Exam - Reviewed Nursing Documentation Reviewed: Yes Vital Signs Reviewed: Yes - Physical Exam Appears: Positive for: Well, Non-toxic, No Acute Distress Head Exam: Positive for: ATRAUMATIC, NORMAL INSPECTION, NORMOCEPHALIC Skin: Positive for: Normal Color, Warm, Dry Eye Exam: Positive for: Normal appearance Neck: Positive for: Normal, Painless ROM, Supple Cardiovascular/Chest: Positive for: Regular Rate, Rhythm Respiratory: Positive for: CNT, Normal Breath Sounds Gastrointestinal/Abdominal: Positive for: Normal Exam, Soft. Negative for: Tenderness Back: Positive for: Normal Inspection. Negative for: Vertebral Tenderness Extremity: Positive for: Normal ROM Neurologic/Psych: Positive for: Alert, Oriented - ECG O2 Sat by Pulse Oximetry: 99 (RA) Pulse Ox Interpretation: Normal Medical Decision Making Medical Decision Making: Time: 08:30 Initial Impression: Schmidt bag replacement Initial Plan: * Change Schmidt bag * Disposition Time: 09:08 Upon provider evaluation patient is medically stable, and requires no further treatment in the ED at this time. Patient will be discharged home. Counseling was provided and all questions were answered regarding diagnosis and need for follow up with primary medical doctor, Dr. Tiffany James. There is agreement to discharge plan. Return if symptoms persist or worsen. Scribe Attestation: Documented by Kimberly Fowler, acting as a scribe for Judith Fish MD. Provider Scribe Attestation: All medical record entries made by the Scribe were at my direction and personally dictated by me. I have reviewed the chart and agree that the record accurately reflects my personal performance of the history, physical exam, medical decision making, and the department course for this patient. I have also personally directed, reviewed, and agree with the discharge instructions and disposition. Disposition - Clinical Impression Clinical Impression: Encounter for evaluation of Schmidt catheter - Patient ED Disposition Is Patient to be Admitted: No Doctor Will See Patient In The: Office Counseled Patient/Family Regarding: Diagnosis, Need For Followup - Disposition Referrals: Tiffany James MD [Staff Provider] - Disposition: Routine/Home Disposition Time: 08:58 Condition: STABLE Instructions: Schmidt Catheter Placement and Care (ED), Urinary Leg Bag (GEN) Print Language: ALBANIAN
== END 2017-04-08 09:10 | disposition home or self-care (01) ==
LOC: H.ER 07:29
DX: T83.038A Leakage of other urinary catheter, initial encounter (principal)

== ENCOUNTER 2018-07-27 13:29 | Emergency (ER) | payer MEDICARE, OTHER ==
[2018-07-27 13:29] VITALS: BMI 22.7
[2018-07-27 15:21] LABS: BLOOD UREA NITROGEN 16 mg/dl (9-20); CALCIUM 9.1 mg/dL (8.4-10.2); GFR NON-AFRICAN AMERICAN > 60
[2018-07-27 15:22] LABS: BASO # 0.1 K/uL (0.0-0.2); BASO % 1.2 % (0.0-2.0); EOS # 0.6 K/uL (0.0-0.7); EOS % 13.7 % (0.0-4.0); HEMOGLOBIN 13.1 g/dL (12.0-18.0); LYMPH # 1.4 K/uL (1.0-4.3); MEAN CELL VOLUME 92.3 fl (80.0-94.0); MEAN CORPUSCULAR HGB CONC 33.6 g/dL (33.0-37.0); MEAN PLATELET VOLUME 8.3 fl (7.2-11.7); MONO # 0.3 K/uL (0.0-0.8); MONO % 6.2 % (0.0-10.0); NEUT # 2.3 K/uL (1.8-7.0); NEUT % 49.9 % (50.0-75.0); NRBC % 0.2 % (0.0-0.0); RBC 4.22 Mil/uL (4.40-5.90); RED CELL DISTRIBUTION WIDTH 15.2 % (11.5-14.5); WHITE BLOOD COUNT 4.7 K/uL (4.8-10.8)
--- NOTE | 2018-07-27 15:29 | ED PDOC ---
HPI: Male Pain Time Seen by Provider: 07/27/18 14:35 Chief Complaint (Nursing): Male Genitourinary Chief Complaint (Provider): Male Genitourinary History Per: Patient History/Exam Limitations: no limitations Onset/Duration Of Symptoms: Days (x1 month) Current Symptoms Are (Timing): Still Present Additional Complaint(s): Kaleb Bradshaw is a 82 year old male with a past medical history of HTN, urethral strictures, and prostate enlargement, complaining of difficulty urinating, associated with suprapubic pain intermittently, onset x1 month. Patient is able to urinate but only a small amount. Patient states its hard to urinate during the day but at night he has involuntary urination. He further reports of right groin hernia that he has had for a long time with no pain at this time but it still has not gone away. Patient denies having any fever, back pain or vomiting. PMD: Yvonne Past Medical History Reviewed: Historical Data, Nursing Documentation, Vital Signs Vital Signs: Last Vital Signs Temp 97 F L 07/27/18 13:43 Pulse 67 07/27/18 13:43 Resp BP 173/100 H 07/27/18 13:43 Pulse Ox 98 07/27/18 13:43 - Medical History PMH: HTN Denies: Chronic Kidney Disease Other PMH: urethral stricture - Surgical History Surgical History: No Surg Hx - Family History Family History: States: Unknown Family Hx - Immunization History Hx Influenza Vaccination: No - Home Medications Home Medications: Ambulatory Orders Medication Instructions Recorded Tramadol HCl [Ultram] 50 mg PO Q6 PRN 10/10/17 Sulfamethoxazole/Trimethoprim 1 tab PO BID #14 tab 11/12/17 [Bactrim DS 800 mg-160 mg] Ciprofloxacin [Cipro] 500 mg PO BID #14 tab 07/27/18 RX: Tamsulosin [Flomax] 0.4 mg PO DAILY #30 cap 07/27/18 - Allergies Allergies/Adverse Reactions: Allergies Allergy/AdvReac Type Severity Reaction Status Date / Time No Known Allergies Allergy Verified 11/10/17 10:25 Review of Systems ROS Statement: Except As Marked, All Systems Reviewed And Found Negative Constitutional: Negative for: Fever Gastrointestinal: Positive for: Abdominal Pain (suprapubic). Negative for: Vom iting Genitourinary Male: Positive for: Dysuria Musculoskeletal: Negative for: Back Pain Physical Exam - Reviewed Nursing Documentation Reviewed: Yes Vital Signs Reviewed: Yes - Physical Exam Appears: Positive for: Non-toxic, No Acute Distress Head Exam: Positive for: ATRAUMATIC, NORMOCEPHALIC Skin: Positive for: Normal Color, Warm, Dry Eye Exam: Positive for: Normal appearance, EOMI, PERRL ENT: Positive for: Normal ENT Inspection Neck: Positive for: Normal, Painless ROM, Supple Cardiovascular/Chest: Positive for: Regular Rate, Rhythm. Negative for: Murmur Respiratory: Positive for: Normal Breath Sounds. Negative for: Respiratory Distress Gastrointestinal/Abdominal: Positive for: Normal Exam, Other. Negative for: Tenderness Male Genital Exam: Positive for: other (fully reducible right inguinal hernia) Back: Positive for: Normal Inspection. Negative for: L CVA Tenderness, R CVA Tenderness, Vertebral Tenderness Extremity: Positive for: Normal ROM. Negative for: Pedal Edema, Deformity Neurologic/Psych: Positive for: Alert, Oriented (x3). Negative for: Motor/Sensory Deficits - Laboratory Results Result Diagrams: 07/27/18 13:50 07/27/18 13:50 - ECG O2 Sat by Pulse Oximetry: 98 (RA) Pulse Ox Interpretation: Normal Medical Decision Making Medical Decision Making: Initial Time: 13:50 Initial Impression: Dyrsuria, hernia, and suprapubic pain differential diagnosis includes UTI, chronic urinary retention and rule out acute renal failure. Initial Plan: --BMP --ED urine dipstick --CBC with differential --Bladder scan PRN --Urinalysis 1500 Bladder scan reveals empty bladder. UA reveals UTI Scribe Attestation: Documented by Shorty Toribio, acting as a scribe for Asha Zuñiga MD. Provider Scribe Attestation: All medical record entries made by the Duongibe were at my direction and personally dictated by me. I have reviewed the chart and agree that the record accurately reflects my personal performance of the history, physical exam, medical decision making, and the department course for this patient. I have also personally directed, reviewed, and agree with the discharge instructions and disposition. Disposition - Clinical Impression Clinical Impression: Urinary retention, UTI (urinary tract infection) - Patient ED Disposition Is Patient to be Admitted: No Doctor Will See Patient In The: Office Counseled Patient/Family Regarding: Studies Performed, Diagnosis, Need For Followup - Disposition Referrals: Jam Gutierrez Jr., MD [Staff Provider] - Disposition: Routine/Home Disposition Time: 16:00 Condition: GOOD Additional Instructions: KALEB BRADSHAW, thank you for letting us take care of you today. Your provider was Asha Zuñiga MD and you were treated for MALE GENITOURINARY. The emergency medical care you received today was directed at your acute symptoms. If you were prescribed any medication, please fill it and take as directed. It may take several days for your symptoms to resolve. Return to the Emergency Department if your symptoms worsen, do not improve, or if you have any other problems. Please contact your doctor or call one of the physicians/clinics you have been referred to that are listed on the Patient Visit Information form that is included in your discharge packet. Bring any paperwork you were given at discharge with you along with any medications you are taking to your follow up visit. Our treatment cannot replace ongoing medical care by a primary care provider outside of the emergency department. Thank you for allowing the [facility] team to be part of your care today. If you had an X-Ray or CT scan: A Radiologist will review the ED reading if any change in treatment is needed we will contact you. If you had a blood, urine, or wound culture: It will take several days for the results, if any change in treatment is needed we will contact you. If you had an STI test: It will take 48 hours for the results. Please call after 1 week if you have not heard back. Prescriptions: Ciprofloxacin [Cipro] 500 mg PO BID #14 tab RX: Tamsulosin [Flomax] 0.4 mg PO DAILY #30 cap Instructions: Urinary Tract Infection, Adult (DC), Urinary Retention Print Language: OCCITAN
[2018-07-27 16:58] LABS: SQUAMOUS EPITHIAL 1 /hpf (0-5); URINE BACTERIA FEW (<OCC); URINE BILIRUBIN NEGATIVE (NEGATIVE); URINE BLOOD SMALL (NEGATIVE); URINE CLARITY TURBID (Clear); URINE COLOR YELLOW (YELLOW); URINE GLUCOSE (UA) NEG (Normal); URINE LEUKOCYTE ESTERASE MOD Leu/uL (Negative); URINE PROTEIN 100 mg/dL (NEGATIVE); URINE UROBILINOGEN 0.2-1.0 mg/dL (0.2-1.0); WBC CLUMPS MANY /hpf
[2018-07-27 19:20] VITALS: BP 140/76; PULSE 78; RESP 18; TEMP 97.8
[2018-07-28 07:37] VITALS: O2SAT 98
== END 2018-07-27 19:18 | disposition home or self-care (01) ==
LOC: H.ER 13:29
DX: R33.9 Retention of urine, unspecified (principal); N39.0 Urinary tract infection, site not specified; I10 Essential (primary) hypertension; N40.1 Benign prostatic hyperplasia with lower urinary tract symptoms